=== PATIENT | male | born 1960 | race Caucasian/White ===

== ENCOUNTER 2018-06-20 15:48 | Emergency (ER) | payer SELFPAY ==
[2018-06-20 16:56] LABS: URINE MICROSCOPIC INDICATED? YES; URINE SOURCE CLEAN C
[2018-06-20 16:57] LABS: URINE BILIRUBIN NEGATIVE (NEGATIVE); URINE BLOOD SMALL (NEGATIVE); URINE GLUCOSE (UA) 100 mg/dL (NEGATIVE); URINE KETONE NEGATIVE (NEGATIVE); URINE LEUKOCYTE ESTERASE NEGATIVE (NEGATIVE); URINE NITRATE NEGATIVE (NEGATIVE); URINE PH 5.5 (4.6 - 8.0); URINE PROTEIN NEGATIVE (NEGATIVE); URINE UROBILINOGEN 0.2 E.U./dL (0.2 - 1.0)
[2018-06-20 17:01] LABS: URINE CLARITY CLEAR (CLEAR); URINE COLOR YELLOW
[2018-06-20 17:09] LABS: % BASOPHILS 1.1 % (0.0-2.0); % EOSINOPHILS 5.2 % (0.0-5.0); % LYMPHOCYTES 52.9 % (20.0-50.0); % MONOCYTES 8.3 % (2.0-10.0); % NEUTROPHILS 32.5 % (40.0-80.0); BASOPHILE ABSOLUTE 0.1 Th/cumm (0-0.2); EOSINOPHILE ABSOLUTE 0.3 Th/cmm (0.1-0.4); HEMATOCRIT 43.8 % (41.0-60); LYMPHOCYTE ABSOLUTE 3.4 Th/cmm (1.5-3.0); MEAN CELL VOLUME 89.3 fl (80-99); MEAN CORPUSCULAR HEMOGLOBIN 30.5 pg (26.0-30.0); MEAN CORPUSCULAR HGB CONC 34.2 pg (28.0-36.0); MEAN PLATELET VOLUME 6.6 fl; MONOCYTE ABSOLUTE 0.5 Th/cmm (0.3-1.0); NEUTROPHILE ABSOLUTE 2.1 Th/cmm (1.8-8.0); PLATELET COUNT 334 Th/cmm (150-400); RED BLOOD COUNT 4.91 Mil/cmm (4.30-5.70); RED CELL DISTRIBUTION WIDTH 13.5 % (11.5-20.0); WHITE BLOOD COUNT 6.4 Th/cmm (4.8-10.8)
[2018-06-20 17:12] LABS: URINE BACTERIA OCCASIONAL /hpf (NONE SEEN); URINE EPITHELIAL CELLS FEW /lpf (FEW); URINE WBC 0-2 /hpf (0-5)
[2018-06-20] MEDS ORDERED: Lactated Ringer 1,000 ML IV ONE (17:12)
[2018-06-20 17:15] LABS: AMPHETAMINE URINE POSITIVE (NEGATIVE); BARBITURATES URINE NEGATIVE (NEGATIVE); BENZODIAZEPINES QUAL URINE NEGATIVE (NEGATIVE); CANNABINOID THC NEGATIVE (NEGATIVE); COCAINE METABOLITE QUAL URINE NEGATIVE (NEGATIVE); METHADONE URINE NEGATIVE (NEGATIVE); METHAMPHETAMINES QUAL URINE POSITIVE (NEGATIVE); OPIATES (MORPHINE) QUAL. URINE NEGATIVE (NEGATIVE); PHENCYCLIDINE (PCP) URINE NEGATIVE (NEGATIVE); TRICYCLICS (TCA) QUAL. URINE NEGATIVE (NEGATIVE)
[2018-06-20 17:27] LABS: ALB/GLOB RATIO 1.7 (1.0-1.8); ALBUMIN 3.8 gm/dL (4.2-5.5); ALKALINE PHOSPHATASE 89 U/L (34-104); AMYLASE SERUM 46 U/L (29-103); ANION GAP 10.6 (7.0-16.0); BILIRUBIN,TOTAL 0.3 mg/dL (0.3-1.0); BUN - UREA NITROGEN 16 mg/dL (7-25); CALCIUM SERUM 9.4 mg/dL (8.6-10.3); CARBON DIOXIDE 25.3 mEq/L (21.0-31.0); CHLORIDE 105 mEq/L (98-107); CREATININE - SERUM 0.9 mg/dL (0.7-1.3); GFR AFRICAN-AMERICAN > 60.0 ml/min (>90); GFR NON AFRICAN-AMERICAN > 60.0 ml/min; GLUCOSE 111 mg/dL (70-105); LIPASE 17 U/L (11-82); MAGNESIUM 2.3 mg/dL (1.9-2.7); PHOSPHOROUS 3.5 mg/dL (2.5-5.0); POTASSIUM SERUM 3.9 mEq/L (3.5-5.1); SGOT 17 U/L (13-39); SGPT/ALT 13 U/L (7-52); SODIUM SERUM 137 mEq/L (136-145)
[2018-06-20 18:23] LABS: INR 0.92 (0.5-1.4); PROTHROMBIN TIME (TEST) 9.6 SECONDS (9.5-11.5)
--- NOTE | 2018-06-20 18:54 | ED Physician Chart ---
ED Chief Complaint/HPI - Patient Information Date Seen:: 06/20/18 Time Seen:: 16:06 Chief Complaint:: abdominal pain History of Present Illness:: abdominal pain. No N, V, D or constipation. Had a trauma 3 weeks ago when he fell down a ladder about 30 feet. Never had any back xrays taken. Allergies:: Allergies Allergy/AdvReac Type Severity Reaction Status Date / Time No Known Allergies Allergy Verified 06/20/18 16:05 Vitals:: Vital Signs - 8 hr 06/20/18 16:06 Temp 98.2 F HR 63 RR 15 BP 141/70 O2 Sat % 96 ED Past Medical History - Past Medical History Obtainable: Yes Past Medical History: Other (daily alcohol intake of equivalent of a 6 pack of beer a day; lacerations on RUE and scalp in past.) Family History: Other (not contributory) Social History: Illicit Drug Use (smoked methamphetamine for the pain. Took a norco last night and drank beer with it.) Employment:: construction and painting. Family Medical History - Family Member Mother History Unknown: Yes Ethnicity: ED Physical Exam - Physical Examination General/Constitutional: Awake, Well-developed, well-nourished, Alert, GCS 15, Non-toxic appearing, Ambulatory Other Gen/Cons comments:: in some pain from his abdomen. Head: Atraumatic Eyes: Lids, conjuctiva normal, PERRL, EOMI Skin: Nl inspection, No rash, No skin lesions, No ecchymosis, Well hydrated, No lymphadenopathy ENMT: External ears, nose nl, Nasal exam nl, Lips, teeth, gums nl Neck: Nontender, Full ROM w/o pain, No JVD, No nuchal rigidity, No bruit, No mass, No stridor Respiratory: Nl effort/Exclusion, Clear to Auscultation, No Wheeze/Rhonchi/Rales Cardio Vascular: RRR, No murmur, gallop, rubs, NL S1 S2 GI: Normal BS's Other GI comments:: RUQ pain to palpation. Some left lower quadrant pain to palpation. No peritoneal signs. : No CVA tenderness, NL external genitalia Other comments:: No inguinal lymphadenopathy. No hernias seen or palpated. Normal testicles ( nontender). Uncircumcised penis that appears normal. Extremities: No tenderness or effusion, Full ROM, normal strength in all extremities, No edema, Normal digits & nails Neuro/Psych: Alert/oriented, DTR's symmetric, Normal sensory exam, Normal motor strength, Judgement/insight normal, Mood normal, Normal gait, No focal deficits Misc: Normal back Other Misc comments:: Left lower back pain more than on the right lower back. ED Labs/Radiology/EKG Results - Lab Results Results: Laboratory Tests 06/20/18 06/20/18 06/20/18 16:00 16:00 17:00 WBC 6.4 RBC 4.91 Hgb 15.0 Hct 43.8 MCV 89.3 MCH 30.5 H MCHC Differential 34.2 RDW 13.5 Plt Count 334 MPV 6.6 Neutrophils % 32.5 L Lymphocytes % 52.9 H Monocytes % 8.3 Eosinophils % 5.2 H Basophils % 1.1 PT INR PTT (Actin FS) Sodium Potassium Chloride Carbon Dioxide Anion Gap BUN Creatinine Est GFR ( Amer) Est GFR (Non-Af Amer) BUN/Creatinine Ratio Glucose Calcium Phosphorus Magnesium Total Bilirubin AST ALT Alkaline Phosphatase Total Protein Albumin Globulin Albumin/Globulin Ratio Amylase Lipase Urine Source CLEAN C Urine Color YELLOW Urine Clarity CLEAR Urine pH 5.5 Ur Specific Ellerbe 1.025 Urine Protein NEGATIVE Urine Glucose (UA) 100 H Urine Ketones NEGATIVE Urine Blood SMALL H Urine Nitrate NEGATIVE Urine Bilirubin NEGATIVE Urine Urobilinogen 0.2 Ur Leukocyte Esterase NEGATIVE Urine RBC 2-5 H Urine WBC 0-2 Ur Epithelial Cells FEW Urine Bacteria OCCASIONAL Urine Mucus FEW Urine Opiates Screen NEGATIVE Urine Methadone Screen NEGATIVE Ur Barbiturates Screen NEGATIVE Ur Tricyclics Screen NEGATIVE Ur Phencyclidine Scrn NEGATIVE Amphetamines Screen POSITIVE H U Methamphetamines Scrn POSITIVE H U Benzodiazepines Scrn NEGATIVE U Cocaine Metab Screen NEGATIVE U Cannabinoids Screen NEGATIVE Ethyl Alcohol 06/20/18 06/20/18 17:00 17:00 WBC RBC Hgb Hct MCV MCH MCHC Differential RDW Plt Count MPV Neutrophils % Lymphocytes % Monocytes % Eosinophils % Basophils % PT 9.6 INR 0.92 PTT (Actin FS) 28.1 Sodium 137 Potassium 3.9 Chloride 105 Carbon Dioxide 25.3 Anion Gap 10.6 BUN 16 Creatinine 0.9 Est GFR ( Amer) > 60.0 Est GFR (Non-Af Amer) > 60.0 BUN/Creatinine Ratio 17.8 Glucose 111 H Calcium 9.4 Phosphorus 3.5 Magnesium 2.3 Total Bilirubin 0.3 AST 17 ALT 13 Alkaline Phosphatase 89 Total Protein 6.0 Albumin 3.8 L Globulin 2.2 Albumin/Globulin Ratio 1.7 Amylase 46 Lipase 17 Urine Source Urine Color Urine Clarity Urine pH Ur Specific Ellerbe Urine Protein Urine Glucose (UA) Urine Ketones Urine Blood Urine Nitrate Urine Bilirubin Urine Urobilinogen Ur Leukocyte Esterase Urine RBC Urine WBC Ur Epithelial Cells Urine Bacteria Urine Mucus Urine Opiates Screen Urine Methadone Screen Ur Barbiturates Screen Ur Tricyclics Screen Ur Phencyclidine Scrn Amphetamines Screen U Methamphetamines Scrn U Benzodiazepines Scrn U Cocaine Metab Screen U Cannabinoids Screen Ethyl Alcohol < 10 ED Assessment - Assessment Assessment/Comments:: patient was sleeping comfortably yet asked for pain medication even after the abdominal CT scan came back negative. ED Septic Shock - . Is Septic Shock (SBP<90, OR Lactate>4 mmol\L) present?: No - <6hrs of presentation: Vital Signs: Vital Signs - 8 hr 06/20/18 16:06 Temp 98.2 F HR 63 RR 15 BP 141/70 O2 Sat % 96 ED Reassessment (Disposition) - Reassessment Reassessment Condition:: Improved - Diagnosis Diagnosis:: Hematuria Abdominal Pain Methamphetamine Usage Chronic Alcohol Usage - Aftercare/Follow up Instructions Aftercare/Follow-Up Instructions:: Refer to Discharge Instructions Notes:: Patient was given referrals to a urologist for further workup of the hematuria. He was also given referrals to a family practitioner and internal medical doctor. I told the patient that he should stop smoking methamphetamine and decreased his alcohol intake since he has RUQ pain. He was told that he has atherosclerosis of his aorta and other blood vessels and needs his cholesterol level checked. All instructions were given to patient and to his daughter. Patient and daughter were also told about the mild disc protrusions and were told that he should not lift anything heavy. - Patient Disposition Discharge/Transfer:: Home
[2018-06-20 19:30] LABS: URINE MICROSCOPIC INDICATED? YES; URINE SOURCE CLEAN C
[2018-06-20 19:34] LABS: URINE BILIRUBIN NEGATIVE (NEGATIVE); URINE BLOOD SMALL (NEGATIVE); URINE GLUCOSE (UA) NEGATIVE (NEGATIVE); URINE KETONE NEGATIVE (NEGATIVE); URINE LEUKOCYTE ESTERASE NEGATIVE (NEGATIVE); URINE NITRATE NEGATIVE (NEGATIVE); URINE PROTEIN NEGATIVE (NEGATIVE); URINE UROBILINOGEN 0.2 E.U./dL (0.2 - 1.0)
[2018-06-20 19:35] LABS: URINE CLARITY CLEAR (CLEAR); URINE COLOR YELLOW
[2018-06-20 19:41] LABS: URINE BACTERIA OCCASIONAL /hpf (NONE SEEN); URINE EPITHELIAL CELLS OCCASIONAL /lpf (FEW); URINE RBC 0-2 /hpf (0-5); URINE WBC 0-2 /hpf (0-5)
--- NOTE | 2018-06-21 07:42 | Diagnostic Imaging Report ---
Exam: CT examination lumbar cervical spine. HISTORY: Trauma. Total DLP equals 806 CTDI equals 34.6, 0.0 Findings: Multiple contiguous thin section of the lumbar sacral spine were obtained in axial plane with coronal and sagittal reconstruction technique. The study demonstrates vertebral bodies of normal height with mild degenerative changes in the lower lumbar vertebrae with central disc protrusion at L4-L5, L3-L4 intervertebral disc space.. Clinical correlation and MRI examination of the helpful. There is evidence for mild facet nephropathy at the L3-L4 L4-L5 and L5-S1 levels. The neural canal is intact, there is no evidence of stenosis. Mild degenerative osteophytic spurring is noted the lower vertebral bodies. There is no evidence of prevertebral soft tissue swelling. Posterior elements are intact. IMPRESSION: Mild degenerative changes lower lumbar cervical spine Mild central disc protrusion at the L3-L4, L4-5 levels. Clinical correlation and MRI examination might be helpful.
--- NOTE | 2018-06-21 08:04 | Diagnostic Imaging Report ---
CT scan of the abdomen and pelvis without intravenous contrast History: Pain Total DLP equals 428 CTDI equals 8.3 Axial sections were obtained from the xiphoid process down to the pubic symphysis. The liver demonstrates a normal size and contour. No focal lesions are seen. A small 1.4 cm cyst is noted in the right lobe of liver. The spleen appears normal. No abnormalities are seen in the region of the pancreas. The kidneys appear normal bilaterally. Appendix is intact. Large amount of fecal content is seen. Atherosclerotic vascular calcification is noted. There is no evidence of diverticulitis. The urinary bladder contracted the bladder wall is thickened. Small inguinal hernias containing fat appreciated. The exam of the pelvis demonstrates preservation of normal fat planes. No abnormal soft tissue masses. No abnormal fluid collections. Impression: Negative examination
== END 2018-06-20 20:30 | disposition home or self-care (01) ==
LOC: ER 15:48
DX: F15.90 Other stimulant use, unspecified, uncomplicated (principal); R10.11 Right upper quadrant pain; R31.9 Hematuria, unspecified; M54.5 Low back pain; Z72.89 Other problems related to lifestyle
CPT/HCPCS: 36415-UA; 72131-TC; 80053-TC; 80307; 80320-TC; 81001-TC; 82150-TC; 83690-TC; 83735-TC; 84100-TC; 85025-TC; 85610-TC